=== PATIENT | female | born 1930 | race Caucasian/White ===

== ENCOUNTER 2016-12-02 16:16 | Emergency (ER) | payer OTHER ==
[~2016-12-02] VITALS: Ht 170.2 cm; Wt 59.0 kg
[~2016-12-02 16:16] MED LIST: ADVIL100 M1 ORAL; ASPIR-LOW81 MG ORAL; HYDROCHLOROTHIA25 MG ORAL; TENORMIN50 MG ORAL; ZESTRIL20 MG ORAL
[2016-12-02] MEDS ORDERED: Acetaminophen 500mg (ES) tab ORAL ONE (16:45)
[2016-12-02 17:44] LABS: BASOPHILS % (AUTO) 0.6 % (0.0-2.0); EOSINOPHILS % (AUTO) 0.6 % (0.0-3.0); MEAN CORPUSCULAR HEMOGLOBIN 32.1 PG (27.0-31.0); MEAN CORPUSCULAR HGB CONC 35.9 G/DL (32.0-36.0); MEAN CORPUSCULAR VOLUME 89 FL (80-99); MEAN PLATELET VOLUME 5.8 FL (6.5-10.1); MONOCYTES % (AUTO) 6.2 % (1.0-10.0); NEUTROPHILS % (AUTO) 77.7 % (45.0-75.0); PLATELET COUNT 172 K/UL (150-450); RED BLOOD COUNT 3.91 M/UL (4.20-5.40); RED CELL DISTRIBUTION WIDTH 12.8 % (11.6-14.8); WHITE BLOOD COUNT 8.1 K/UL (4.8-10.8)
[2016-12-02 17:49] LABS: INR 1.1 (0.9-1.1); PROTHROMBIN TIME 11.2 SEC (9.30-11.50)
[2016-12-02 17:55] LABS: ALANINE AMINOTRANSFERASE 10 U/L (3-33); ALBUMIN/GLOBULIN RATIO 1.3 (1.0-2.7); ANION GAP 20 (5-15); ASPARTATE AMINO TRANSFERASE 20 U/L (5-40); CALCIUM 9.5 mg/dL (8.6-10.2); CARBON DIOXIDE 22 mEQ/L (20-30); CHLORIDE 93 mEQ/L (98-107); CREATININE 1.3 mg/dL (0.5-0.9); HEMOLYSIS 13; POTASSIUM 3.4 mEQ/L (3.4-4.9); SODIUM 135 mEQ/L (135-145); TOTAL PROTEIN 6.9 g/dL (6.6-8.7); TROPONIN I < 0.30 ng/mL (<=0.30)
[2016-12-02 18:05] LABS: CKMB 2.3 ng/mL (< 3.8)
[2016-12-02] MEDS ORDERED: Ketorolac 30mg Inj IV ONE (19:00)
[2016-12-02] MEDS ORDERED: LISINOPRIL40 MG ORAL (19:54)
[2016-12-02] MEDS ORDERED: CHLORTHALIDONE25 MG ORAL (19:54)
[2016-12-02] MEDS ORDERED: CATAPRES0.2 MG ORAL (20:02)
[2016-12-02] MEDS ORDERED: BISACODYL5 MG ORAL (20:04)
--- NOTE | 2016-12-02 20:22 | Emergency Room Report ---
History of Present Illness General Chief Complaint: Lower Extremity Injury Source: Patient Present Illness HPI 86-year-old female presents ED for evaluation. Patient a mechanical fall at home. Patient states she landed on her left hip. Unclear whether she hit her head. Patient notes pain to the left hip and left knee. Pain is 6/10, dull, nonradiating. Unable to bear weight. There is shortening of the hip as per EMS. Denies chest pain or shortness of breath. No other aggravating relieving factors. Denies any other associated symptoms Allergies: Coded Allergies: CODEINE (Verified Allergy, Mild, 01/12/10) Patient History Past Medical History: HTN Past Surgical History: none Pertinent Family History: none Social History: Denies: alcohol use, drug use, smoking Now: No Immunizations: UTD Reviewed Nursing Documentation: PMH: Agreed, PSxH: Agreed Nursing Documentation-PMH Past Medical History: No History, Except For Hx Cardiac Problems: Yes Hx Hypertension: Yes Hx Cancer: No Hx Gastrointestinal Problems: Yes Hx Neurological Problems: No Hx Neurologic Surgery: Yes - L3-4 STENOSIS SURGERY-2003 Review of Systems All Other Systems: negative except mentioned in HPI Physical Exam Vital Signs Date Time Temp Pulse Resp B/P Pulse Ox O2 Delivery O2 Flow Rate FiO2 12/02/16 16:13 98.2 78 18 140/82 97 Room Air Sp02 EP Interpretation: reviewed, normal General Appearance: alert, GCS 15, non-toxic, mild distress Head: normocephalic Eyes: bilateral eye PERRL, bilateral eye normal inspection ENT: normal ENT inspection Neck: normal inspection Respiratory: chest non-tender, lungs clear, normal breath sounds, speaking full sentences Cardiovascular #1: regular rate, rhythm, no edema Gastrointestinal: normal bowel sounds, non tender, soft, non-distended, no guarding, no rebound Rectal: deferred Genitourinary: no CVA tenderness Musculoskeletal: decreased range of motion, tender - L hip. L knee Neurologic: alert, oriented x3, responsive, motor strength/tone normal, sensory intact, speech normal Psychiatric: normal inspection Skin: normal inspection Lymphatic: normal inspection Medical Decision Making Diagnostic Impression: Primary Impression: Femoral neck fracture Qualified Codes: S72.002A - Fracture of unspecified part of neck of left femur , initial encounter for closed fracture Additional Impression: Fall Qualified Codes: W19.XXXA - Unspecified fall, initial encounter ER Course Hospital Course 86-year-old female presents to ED with L hip pain and shortening s/p fall Differential diagnoses include: fracture, dislocation, contusion Clinical course Patient placed on stretcher. After initial history and physical I ordered labs , pain medication and imaging studies Labs reviewed-no leukocytosis noted, electrolytes okay, hemoglobin/hematocrit okay CT head no acute process CT pelvis shows left femoral neck fracture X-rays confirm femoral neck fracture, no acute injury to the knee or tib-fib EKG-A. fib, no acute ischemic changes Because of insurance patient will be transferred to [facility]. I feel this is a highly complex case requiring extensive working including EKG/Rhythm strip, Xray/CT/US, Blood/urine lab work, repeat exams while in ED, and administration of strong opiates/narcotics for pain control, admission to hospital or close patient follow up. Diagnosis - femoral neck fracture, fall Transferred in serious condition Labs Test 12/02/16 17:30 White Blood Count 8.1 K/UL (4.8-10.8) Red Blood Count 3.91 M/UL (4.20-5.40) Hemoglobin 12.6 G/DL (12.0-16.0) Hematocrit 34.9 % (37.0-47.0) Mean Corpuscular Volume 89 FL (80-99) Mean Corpuscular Hemoglobin 32.1 PG (27.0-31.0) Mean Corpuscular Hemoglobin Concent 35.9 G/DL (32.0-36.0) Red Cell Distribution Width 12.8 % (11.6-14.8) Platelet Count 172 K/UL (150-450) Mean Platelet Volume 5.8 FL (6.5-10.1) Neutrophils (%) (Auto) 77.7 % (45.0-75.0) Lymphocytes (%) (Auto) 15.0 % (20.0-45.0) Monocytes (%) (Auto) 6.2 % (1.0-10.0) Eosinophils (%) (Auto) 0.6 % (0.0-3.0) Basophils (%) (Auto) 0.6 % (0.0-2.0) Prothrombin Time 11.2 SEC (9.30-11.50) Prothromb Time International Ratio 1.1 (0.9-1.1) Activated Partial Thromboplast Time 23 SEC (23-33) Sodium Level 135 mEQ/L (135-145) Potassium Level 3.4 mEQ/L (3.4-4.9) Chloride Level 93 mEQ/L (98-107) Carbon Dioxide Level 22 mEQ/L (20-30) Anion Gap 20 (5-15) Blood Urea Nitrogen 28 mg/dL (7-23) Creatinine 1.3 mg/dL (0.5-0.9) Estimat Glomerular Filtration Rate mL/min (>60) Glucose Level 163 mg/dL (74-106) Calcium Level 9.5 mg/dL (8.6-10.2) Total Bilirubin 0.3 mg/dL (0.0-1.2) Aspartate Amino Transf (AST/SGOT) 20 U/L (5-40) Alanine Aminotransferase (ALT/SGPT) 10 U/L (3-33) Alkaline Phosphatase 41 U/L (35-104) Total Creatine Kinase 129 U/L (26-140) Creatine Kinase MB 2.3 ng/mL (< 3.8) Creatine Kinase MB Relative Index 1.7 Troponin I < 0.30 ng/mL (<=0.30) Total Protein 6.9 g/dL (6.6-8.7) Albumin 3.9 g/dL (3.5-5.2) Globulin 3.0 g/dL Albumin/Globulin Ratio 1.3 (1.0-2.7) EKG Diagnostic Results Rate: normal Rhythm: other - afib ST Segments: no acute changes ASA given to the pt in ED: No Rhythm Strip Diag. Results EP Interpretation: yes Rhythm: no ectopy Other X-Ray Diagnostic Results Other X-Ray Diagnostic Results : X-Ray Ordered: Left femur, left knee, left tib-fib EP Interpretation: No Findings: no soft tissue swelling Number of Views: 3 Other Impression Left femur-femoral neck fracture, no dislocation, no soft tissue swelling Left knee-No fracture, no dislocation, no soft tissue swelling Left tib-fib-No fracture, no dislocation, no soft tissue swelling CT/MRI/US Diagnostic Results CT/MRI/US Diagnostic Results : Imaging Test Ordered: CT Head, CT Pelvis Impression CT head - no acute changes CT Pelvis - L femoral neck fx Last Vital Signs Date Time Temp Pulse Resp B/P Pulse Ox O2 Delivery O2 Flow Rate FiO2 4/28/17 19:29 98.3 12/02/16 16:13 78 18 140/82 97 Room Air Status: improved Disposition: XFER SHT-TRM HOSP Condition: Serious Referrals: [facility],REFERRING (PCP) NAT STANFORD M.D. Dec 02, 2016 20:22
[2016-12-02 21:26] VITALS: BP 144/67
--- NOTE | 2016-12-03 08:30 | Diagnostic Imaging Report ---
Indication: FALL, pain Technique: spiral acquisitions obtained through the brain. Angled axial and coronal 5 x 5 mm slices were reconstructed. No IV contrast utilized. Radiation dose was minimized using automated exposure control Total dose length product 1290 mGycm. CTDIvol(s) 70 mGy Comparison: none FINDINGS: No acute hemorrhage or edema. No mass effect or midline shift. There is age-related enlargement of the ventricles and extra axial CSF spaces. There is periventricular deep white matter ischemic change. Normal ch-white differentiation. . Visualized sinuses are unremarkable. Intact calvarium. There is a small lacunar infarct in the anterior limb of the right internal capsule that is only mildly hypoattenuating. Evidence of prior bilateral cataract surgery. A calcification is seen in the right optic globe. IMPRESSION: Chronic and age-related changes. Negative for acute intracranial bleed or mass effect Acuity indeterminate anterior limb right internal capsule lacunar infarct. Consider MRI for better characterization if clinically indicated This agrees with the preliminary interpretation provided overnight by Dr. Malin The CT scanner at [facility], [place] is accredited by the [employer] and the scans are performed using protocols designed to limit radiation exposure to as low as reasonably achievable to attain images of sufficient resolution adequate for diagnostic evaluation
--- NOTE | 2016-12-03 08:33 | Diagnostic Imaging Report ---
Indication: FALL, pain status post fall Technique: Noncontrast spiral acquisitions obtained through the pelvis. Multiplanar reconstructions generated. Total dose length product 318 mGycm. CTDIvol(s) 10 mGy. Dose reduction achieved using automated exposure control Comparison: None Findings: There is a fracture of the left femoral neck. Distal fragment is slightly posteriorly rotated and slightly anteriorly displaced. There is minimal overlying soft tissue contusion. There is no evidence of pelvic fracture or right hip fracture. The sacrum is intact. There are degenerative changes of the lumbosacral junction. There are calcifications in the uterus, likely old degenerative fibroids. Impression: Positive for left femoral neck fracture, as described Degenerative lumbar spondylosis Calcified uterine fibroids incidentally noted This agrees with the preliminary interpretation provided overnight by Dr. Malin The CT scanner at [facility] is accredited by the [employer] and the scans are performed using protocols designed to limit radiation exposure to as low as reasonably achievable to attain images of sufficient resolution adequate for diagnostic evaluation.
--- NOTE | 2016-12-03 09:31 | Diagnostic Imaging Report ---
Indication: SYNCOPE Technique: 2 views of the left tibia and fibula Comparison: none Findings: Overlapping shadows from what are presumably sheets outside the patient obscures the distal tibia and fibula on the lateral views, makes fracture possible to exclude. However, an AP view, no definite fractures or dislocations are evident. The bones are osteoporotic. There are vascular calcifications No acute fractures. No dislocations. Joint spaces are preserved. No radiopaque foreign body. Impression: No definite acute bony trauma Osteoporosis
--- NOTE | 2016-12-03 09:33 | Diagnostic Imaging Report ---
Indication: SYNCOPE Technique: 3 views of the left knee Comparison: None Findings:There are superior pole patellar osteophytes. No suprapatellar effusions. No acute fractures. No dislocations. There is very minimal bilateral meniscal chondrocalcinosis. There are vascular calcifications Impression:Findings as noted. No acute bony trauma
--- NOTE | 2016-12-03 09:34 | Diagnostic Imaging Report ---
Indication: SYNCOPE Technique: One view of the chest Comparison: none Findings: Lungs and pleural spaces are clear. The heart size is borderline enlarged. Granulomatous calcified lymph nodes are seen in the right paratracheal region and right perihilar region Impression: Evidence of old granulomatous disease. No acute process
--- NOTE | 2016-12-05 10:31 | Diagnostic Imaging Report ---
Indication: SYNCOPE Technique: 2 views of the left femur Comparison: None Findings: There is a minimally displaced femoral neck fracture. No pelvic fracture. No distal shaft fracture. Bones are osteoporotic. There are vascular calcifications. The joint spaces are preserved. Impression: Positive for left femoral neck fracture
== END 2016-12-02 21:28 | disposition short-term general hospital (02) ==
LOC: EDBD 16:16 → EMR 17:42 → CANBEDREQ 19:12 → EMR 21:28
DX: S72.002A Fracture of unspecified part of neck of left femur, initial encounter for closed fracture (principal); W19.XXXA Unspecified fall, initial encounter; Y93.9 Activity, unspecified; Y92.009 Unspecified place in unspecified non-institutional (private) residence as the place of occurrence of the external cause; Z88.6 Allergy status to analgesic agent; I10 Essential (primary) hypertension; M25.562 Pain in left knee; I48.91 Unspecified atrial fibrillation
CPT/HCPCS: 36415; 70450; 71010; 72192; 73552; 73562; 73590; 80053; 82550; 82553; 84484; 85025; 85610; 85730; 93005; 96374; 96375; 99285; J1885; J7040